=== PATIENT | male | born 1980 | race Caucasian/White ===

== ENCOUNTER 2021-02-05 08:27 | Emergency (ER) | payer BC, OTHER ==
[~2021-02-05] VITALS: Ht 177.8 cm; Wt 138.2 kg
[2021-02-05 08:32] VITALS: BP 126/87
--- NOTE | 2021-02-05 08:55 | NUR ---
lead athlete note: Pt to room from lobby.
--- NOTE | 2021-02-05 09:35 | NUR ---
Patient given discharge instructions and they have confirmed that they understand the instructions. Patient ambulatory with steady gait. NAD, all questions answered appropriately, denies additional needs at this time. No personal belongings left in room after discharge.
== END 2021-02-05 10:05 | disposition home or self-care (01) ==
LOC: ED 09:10
DX: L03.313 Cellulitis of chest wall (principal); L03.113 Cellulitis of right upper limb; Z87.891 Personal history of nicotine dependence
CPT/HCPCS: 99283